=== PATIENT | male | born 1980 | race Caucasian/White ===

== ENCOUNTER 2021-02-15 10:32 | Emergency (ER) | payer BC, SELFPAY ==
[2021-02-15 10:40] VITALS: BP 130/76; PULSE 65; RESP 16; TEMP 37.2; O2SAT 99
--- NOTE | 2021-02-15 11:29 | ED.WOUNDLAC ---
HPI - Wound/Laceration General Chief Complaint: Wound/Laceration Stated Complaint: rt thumb laceration Time Seen by Provider: 02/15/21 11:20 Source: patient and RN notes reviewed Mode of arrival: ambulatory Limitations: no limitations History of Present Illness HPI narrative: 40-year-old male presents with concern for laceration to the tip of the first digit of the right hand that he sustained last night. Reports he closed the area with a Band-Aid. He is not sure of his tetanus status. He denies any decreased sensation, strength, range of motion of the digit. Extremity Location: Right: hand Place: home Related Data Home Medications Medication Instructions Recorded Confirmed No Home Medications 02/15/21 02/15/21 Allergies Allergy/AdvReac Type Severity Reaction Status Date / Time No Known Allergies Allergy Mild Verified 12/23/09 20:04 Review of Systems Review of Systems: Narrative: CONSTITUTIONAL: Denies malaise, chills, sweats, or fever. SKIN: Reports laceration to the distal end of the first digit of the right hand MUSCULOSKELETAL: Denies muscle skeletal pain NEUROLOGIC: Denies numbness, weakness. All systems reviewed & are unremarkable except as noted in HPI and below PMFSH Comments At time of signature, agree with nursing past medical, surgical, social and family history. There is no relevant family history pertinent to the presenting complaint Exam Narrative: Exam Narrative: GENERAL: Well-appearing, well-nourished, and in no acute distress. HEAD: Normocephalic EYES: PERRLA, conjunctivae clear NECK: Supple. CHEST: Speaks in full sentences. No respiratory distress. HEART: Regular rate and rhythm. Normal and equal peripheral pulses. EXTREMITIES: First digit of right hand has normal strength and sensation. 5/5 strength with digit flexion, extension. Range of motion normal. No clubbing, cyanosis, or edema noted. Normal thumb opposition. Good capillary refill and radial pulse. Distal capillary refill less than 3 seconds. SKIN: Warn, dry, intact, pink. 2.5cm laceration noted to the distal end of the first digit of right hand extending into the nailbed. No surrounding erythema, edema, induration, drainage noted. NEURO: Alert and oriented x3. PSYCH: Normal mood and affect Course Course Emergency Course: Patient is aware of diagnosis, understands and agrees to treatment plan. Anticipatory guidance given. Patient agrees to follow-up as directed and is aware of reasons to seek care at the emergency department. Portions of this record may have been created with voice recognition software Vital Signs Vital signs: Vital Signs Temperature 98.9 F 02/15/21 10:40 Pulse Rate 65 02/15/21 10:40 Respiratory Rate 16 02/15/21 10:40 Blood Pressure 130/76 02/15/21 10:40 Pulse Oximetry 99 02/15/21 10:40 Temperature 98.9 F 02/15/21 10:40 Pulse Rate 65 02/15/21 10:40 Respiratory Rate 16 02/15/21 10:40 Blood Pressure 130/76 02/15/21 10:40 Pulse Oximetry 99 02/15/21 10:40 Reviewed. Procedures Laceration Laceration 1: Date: 02/15/21 Time: 11:34 Site: hand Size (cm): 2.5 Description: linear Depth: simple, single layer ====== Skin Level ====== Skin layer closed with: dermabond and steri strips ====== Subcutaneous Layer ====== ====== Muscle Layer ====== ====== Tendon Layer ====== MDM - Wound/Laceration MDM Narrative Medical decision making narrative: Wound explored for foreign body and copious irrigation provided with no evidence of FB. Discussed the potential of retained foreign body with the patient and signs/symptoms that should prompt the patient to immediately go to the ED for reevaluation. The laceration was identified to be 2.5 cm in length and located at first digit of the right hand. The laceration was cleansed with [employer] and no debris was noted. Wound is approximated, not gaping, does not come apart easil
[2021-02-15] MEDS: TETANUS,DIPHTHERIA,AC PERTUSSIS ADULT (0.5 ML) BOOSTRIX IM (11:39)
== END 2021-02-15 11:45 | disposition home or self-care (01) ==
PROVIDERS: Emergency Provider Nurse Practitioner
DX: S61.011A Laceration without foreign body of right thumb without damage to nail, initial encounter (principal); X58.XXXA Exposure to other specified factors, initial encounter; Z23 Encounter for immunization
CPT/HCPCS: 12001; 90471; 90715; 99202; G0463

== ENCOUNTER 2021-03-21 10:16 | Emergency (ER) | payer BC, SELFPAY ==
--- NOTE | 2021-03-21 10:21 | ED.SKABFB ---
HPI - Skin/Abscess/Foreign Bdy General Chief complaint: Skin/Abscess/Foreign Body Stated complaint: poison alok Time Seen by Provider: 03/21/21 10:21 Source: patient and RN notes reviewed History of Present Illness HPI narrative: Patient is a 40-year-old male who presents the urgent care with complaints of poison alok to bilateral upper arms. Patient states that he was carrying a log approximately 3 days ago and noticed the rash. Patient states that he typically goes to his primary to get strongest steroid there is to knock it out . Patient states that he had some left and did take approximately 5 pills of a Medrol Dosepak. Patient is also been using calamine to the area. No other acute complaints. No acute distress noted. Patient under the plan of care. Some parts of this dictation were generated by voice recognition software and may contain typographical and/or grammatical inaccuracies. Related Data Allergies Allergy/AdvReac Type Severity Reaction Status Date / Time No Known Allergies Allergy Mild Verified 12/23/09 20:04 Review of Systems Review of Systems: CONSTITUTIONAL: Denies fever, chills, or sweats. EYES: Denies visual changes, redness, or discharge. ENT: Denies rhinorrhea, congestion, sore throat, or otalgia. CARDIOVASCULAR: Denies chest pain, palpitations, or edema. RESPIRATORY: Denies cough or dyspnea. GASTROINTESTINAL: Denies abdominal pain, nausea, vomiting, or diarrhea. GENITOURINARY: Denies dysuria or hematuria. SKIN: Reports of itchy red poison alok to bilateral upper arms MUSCULOSKELETAL: Denies back pain, joint pain, or myalgia. NEUROLOGIC: Denies headache, numbness, or weakness. All other systems reviewed are negative, except as documented in HPI. PMFSH Comments At the time of my signature, I reviewed and agree with the nursing past medical, surgical, social, and family history. There is no relevant family history pertinent to the patient complaint. Exam Narrative: GENERAL: This is a well-nourished, well-developed patient, in no apparent distress. HEAD: normocephalic, atraumatic. EYES: PERRL. Sclera clear/white. Vision is grossly intact. EARS: External ears normal NOSE: External nose normal with no obvious nasal discharge, nares without redness, no rhinorrhea. THROAT: Mucous membranes moist NECK: Neck supple CARDIOVASCULAR: Regular rate and rhythm without murmurs, gallops, or rubs. RESPIRATORY: Clear to auscultation. Breath sounds equal bilaterally. No wheezes, rales, or rhonchi. SKIN: Pruritic erythemic Rhus dermatitis noted to bilateral upper arms NEURO: awake, alert, and oriented to person, place and time. There were no obvious focal neurologic abnormalities. EXTREMITIES: No clubbing, cyanosis, or edema. Course Vital Signs Vital signs: Vital Signs Temperature 98.6 F 03/21/21 10:25 Pulse Rate 63 03/21/21 10:25 Respiratory Rate 16 03/21/21 10:25 Blood Pressure 144/98 H 03/21/21 10:25 Pulse Oximetry 99 03/21/21 10:25 Temperature 98.6 F 03/21/21 10:25 Pulse Rate 63 03/21/21 10:25 Respiratory Rate 16 03/21/21 10:25 Blood Pressure 144/98 H 03/21/21 10:25 Pulse Oximetry 99 03/21/21 10:25 Reviewed-patient is informed that they may have pre-hypertension or hypertension based on a blood pressure reading in the department. I recommend the patient call the primary care provider listed on their discharge instructions or a physician of their choice this week to arrange follow-up for further evaluation of possible pre-hypertension or hypertension. MDM - Skin/Abscess/Foreign Bdy MDM Narrative Medical decision making narrative: Advised the patient to complete the steroid regimen as prescribed. Be sure to eat and drink with the medication. Use prescription cream to the affected areas avoiding the face, groin and underarms. Continue to use anti-itch medication [id number] such as Benadryl/Zyrtec/Claritin. If you develop an increase in the spread of the rash or redevelopment
[2021-03-21 10:25] VITALS: BP 144/98; PULSE 63; RESP 16; TEMP 37; O2SAT 99
== END 2021-03-21 10:33 | disposition home or self-care (01) ==
PROVIDERS: Emergency Provider Nurse Practitioner Family
DX: L23.7 Allergic contact dermatitis due to plants, except food (principal)
CPT/HCPCS: 99213; G0463

== ENCOUNTER 2023-09-05 08:01 | Emergency (ER) | payer BC, SELFPAY ==
--- NOTE | ~2023-09-05 | XR_ITS ---
EXAMINATION: XR ankle RT min 3V INDICATION: Right ankle pain TECHNIQUE: Four views of the right ankle are obtained. COMPARISON: None available FINDINGS: There is heterotopic ossification projecting dorsal to the distal talus on the lateral view . There is also subtle lucency along the anterior margin of the distal tibia on the lateral view. Ank le joint effusion is present. There is lateral soft tissue swelling of ankle and foot. IMPRESSION: 1. Heterotopic ossification projecting dorsal to the distal talus on the lateral view which could ref lect avulsion injury. 2. Subtle lucency along the anterior margin of the distal tibia on the lateral view, possible nondisp laced fracture. Recommend correlation for tenderness at the sites. 3. Lateral soft tissue swelling of ankle and foot which could reflect soft tissue injury. Reviewed, dictated and finalized at location [facility] IMPRESSION: 1. Heterotopic ossification projecting dorsal to the distal talus on the latera l view which could reflect avulsion injury. 2. Subtle lucency along the anterior margin of the distal tibia on the lateral view, possible nondisplaced fracture. Recommend correlation for tenderness at t he sites. 3. Lateral soft tissue swelling of ankle and foot which could reflect soft tiss ue injury.
--- NOTE | 2023-09-05 08:03 | ED.LOWEXIN ---
HPI - Extremity Injury (Lower) General Chief Complaint: Extremity Injury, Lower Stated Complaint: R ANKLE INJURY Time Seen by Provider: 09/05/23 08:02 Source: patient Mode of arrival: ambulatory Limitations: no limitations History of Present Illness HPI Narrative: Rafi is a 43-year-old male patient presenting to the clinic today with complaints of a right ankle injury/pain. He reports he was playing volleyball last night and he went up to block a volleyball in came down on another person's foot and inverted his right ankle. Is having pain to the lateral and medial ankle. Has been resting and icing it all night. Related Data Home Medications Medication Instructions Recorded Confirmed cholecalciferol (vitamin D3) 25 25 mcg PO DAILY 11/02/22 09/05/23 mcg (1,000 unit) capsule mecobalamin (vitamin B12) 1,000 2,000 mcg sublingual DAILY 11/02/22 09/05/23 mcg disintegrating tablet,sublingual Allergies Allergy/AdvReac Type Severity Reaction Status Date / Time Sertraline AdvReac ejaculation Uncoded 11/02/22 13:17 difficulties Review of Systems Review of Systems: Pertinent positives per HPI. Patient denies any fever, chills, rash, headache, visual changes, dizziness, cough, shortness of breath, chest pain, palpitations, nausea, vomiting, diarrhea, constipation, abdominal pain, or any urinary issues. PMFSH Past Medical History Medical History Vitamin B12 deficiency Vitamin D deficiency Family History Family History Grandparent Cancer Heart disease Social History Social History Smoking status: Never smoker Alcohol intake: current Alcohol use details: rarely Substance use: never Substance use type: does not use Living arrangements: alone Occupation/Education: occupation Comments At the time of my signature, I reviewed and agree with the nursing past medical, surgical, social, and family history. There is no relevant family history pertinent to the patient complaint. Exam Narrative: General: Well-developed, well nourished, in no apparent distress Head: Normocephalic, atraumatic. Cardio: Regular rate and rhythm, s1 and s2 normal, no murmur appreciated. Resp: Clear to auscultation bilaterally, no rhonchi, rales, wheezing or rubs. Musculoskeletal: No deformity, tender to palpation over the medial and lateral right ankle, pain with plantar flexion and dorsal flexion, unable to roll the ankle due to pain, muscle strength strong and equal, peripheral pulse strong, no edema, no cyanosis, normal gait and station Course Course Emergency Course: Portions of this record may have been created with voice recognition software. Level of Care: Express Care Visit Vital Signs Vital signs: Vital signs reviewed MDM - Extremity Injury (Lower) MDM Narrative Medical decision making narrative: At the time of visit patient is resting comfortably on the exam table. Patient appears to be nontoxic. Diagnostics: Right Ankle X-Ray IMPRESSION: 1. Heterotopic ossification projecting dorsal to the distal talus on the lateral view which could reflect avulsion injury. 2. Subtle lucency along the anterior margin of the distal tibia on the lateral view, possible nondisplaced fracture. Recommend correlation for tenderness at the sites. 3. Lateral soft tissue swelling of ankle and foot which could reflect soft tissue injury. Plan: Will place the patient in a right posterior short-leg splint and he reports he has crutches at home. Will have him follow-up with Dr. Minor orthopedic provider-call his office today to schedule an appointment. Supportive measures were discussed with the patient and they voiced understanding discharge instructions and agrees to treatment plan. Return precautions reviewed Differential Diagnosis Diff
[2023-09-05 08:14] VITALS: BP 119/70; PULSE 60; RESP 18; TEMP 36.7; O2SAT 100
== END 2023-09-05 09:00 | disposition home or self-care (01) ==
PROVIDERS: Emergency Provider Nurse Practitioner Family
DX: S82.891A Other fracture of right lower leg, initial encounter for closed fracture (principal); W51.XXXA Accidental striking against or bumped into by another person, initial encounter; Y93.68 Activity, volleyball (beach) (court); E53.8 Deficiency of other specified B group vitamins; E55.9 Vitamin D deficiency, unspecified
CPT/HCPCS: 29515; 73610; 99214; G0463